=== PATIENT | female | born 1945 | race Caucasian/White ===

== ENCOUNTER → 2016-06-09 | Outpatient (CLI) | payer MEDICARE, OTHER ==
[~2016-06-09] MED LIST: AMLO5TAB PO; AMLODIPINE10 M2 PO; AMLODIPINE10 MG PO; ASPIRIN ADULT L81 M3 PO; BENAZEPRIL HYDR10 MG PO; BENAZEPRIL20 MG PO; CEFTIN500 MG PO; CHANTIX0.5 MG PO; DIAZEPAM5 MG PO; DUONEB 3 MG/3 ML3 ML IH; FLUOXETINE40 MG PO; FUROSEMIDE 40MG40 M1 PO; K-DUR 1010 MEQ PO; LEVALBUTEROL IN; LEVAQUIN 750 M750 MG PO; LEVOTHYROXINE0.1 M2 PO; LISINOPRIL 20MG20 MG PO; LOMOTIL 0.025 M1 TAB PO; MEDROL 4MG. DOSE4 MG PO; METOCLOPRAMIDE10 M2 PO; METRONIDAZOLE500 M1 PO; NORCO 325 MG-51 TAB PO; OXYGEN2 XX; PRAVASTATIN 40M40 MG PO; PRAVASTATIN40 MG PO; PREDNISONE 20MG20 MG PO; PROBIOTIC FORMU1 CA2 PO; PROMETHAZINE D118 ML PO; REGLAN10 M1 PO; SEPTRA DS 800 M1 TA1 PO; STIOLTO RESPIMA1 SPR IH; SYMBICORT1 AE1 IH; VITAMIN D32000 I2 PO; XOPENOX 0.0.63 MG/3 IN; ZOFRAN4 MG PO
--- NOTE | 2016-06-10 07:12 | RADIOLOGY REPORT PS360 ---
CHEST(2 VIEWS-NOT PORTABLE) ORDERING PHYSICIAN : Reid Jones MD PATIENT AGE: 71 years GENDER: Female INDICATION: CHEST PAIN, TECHNIQUE: PA and lateral chest COMPARISON: 05/15/2015 FINDINGS COPD with hyperexpansion. The diaphragm again evident. Nothing definitely acute no pneumothorax. No pleural effusion. Heart appears upper normal in size with salazar and mediastinal structures unchanged. Calcified aortic knob. Postsurgical changes lower C-spine from previous anterior cervical discectomy and fusion T-spine stable with minor degenerative change in IMPRESSION: -------- Stable chest. Nothing definitely acute
== END ==
LOC: RAD 15:59
DX: R07.89 Other chest pain (principal)

== ENCOUNTER → 2016-06-20 | Outpatient (CLI) | payer MEDICARE, OTHER ==
[2016-06-20 11:28] LABS: BUN 12 mg/dL (7-18); GFR (ESTIMATED) 62 ML/MIN (59-)
== END ==
LOC: LAB 09:06
PROVIDERS: Family Medicine
DX: I10 Essential (primary) hypertension (principal); E78.5 Hyperlipidemia, unspecified; E03.9 Hypothyroidism, unspecified